=== PATIENT | male | born 1975 | race Caucasian/White ===

== ENCOUNTER 2020-06-30 09:36 | Emergency (ER) | payer BC, SELFPAY ==
--- NOTE | ~2020-06-30 | CT_ITS ---
EXAMINATION: CT abdomen pelvis w con DATE: 06/30/2020 10:50 INDICATION: Upper abdominal pain and distention for one month. Nausea. Diarrhea. TECHNIQUE: Computed tomography (CT) of the abdomen and pelvis was performed with 100 cc Omnipaque 350 intravenous contrast. Automated exposure control and iterative reconstruction technique were employe d. Exam dose: 744.95 mGy-cm total exam DLP. COMPARISON: None. FINDINGS: Bilateral dependent lower lobe and lingular mild atelectasis. Normal heart size. No pericardial or pleural effusion. Small sliding hiatal hernia. Status post cholecystectomy. No bile duct or pancreatic duct dilatation. No hepatic, splenic, pancreatic, adrenal or renal space occupying mass lesion is detected. No urinar y tract calculus or hydroureteronephrosis. Normal caliber of the abdominal aorta. No intraperitoneal or retroperitoneal or pelvic mass lesion o r lymphadenopathy. No ascites. Normal appendix. There is mild distal duodenal and jejunal distention with fluid levels, which may b e due to mild adynamic ileus or enteritis. Otherwise no bowel obstruction or bowel wall thickening o r pneumatosis. The urinary bladder is normal in appearance. Prostate gland is unremarkable. Old healed fractures of left 11th and 12th ribs. No suspicious osteolytic or osteoblastic lesions ar e noted. IMPRESSION: Mild distal duodenal and jejunal distention and fluid levels consistent with mild adynam ic ileus or enteritis Small sliding hiatal hernia Status post cholecystectomy Reviewed, dictated and finalized at [facility] Reviewed, dictated and finalized at [facility] IMPRESSION: Mild distal duodenal and jejunal distention and fluid levels consi stent with mild adynamic ileus or enteritis Small sliding hiatal hernia Status post cholecystectomy
[2020-06-30 09:44] VITALS: BP 137/85; PULSE 81; RESP 18; TEMP 36.6; O2SAT 100
--- NOTE | 2020-06-30 10:09 | ECG_ITS ---
Measurements Intervals [place] Rate: 76 P: 43 IA: 176 QRS: 48 QRSD: 90 T: 52 QT: 370 QTc: 417 Interpretive Statements SINUS RHYTHM CANNOT RULE OUT SEPTAL INFARCT, AGE INDETERMINATE ABNORMAL ECG Electronically Signed On 06-30-2020 10:30:33 CDT by Cody David D.O.
--- NOTE | 2020-06-30 10:13 | ED.ABDPAIN ---
HPI - Abdominal Pain General Chief Complaint: Abdominal Pain Stated Complaint: ABD PAIN Time Seen by Provider: 06/30/20 09:48 History of Present Illness HPI narrative: 44 yo male w/ h/o inguinal and umbilaical hernias s/p repair presents to the ED for abdominal pain. He reports that he has had abdominal pain and bloating for the a few weeks. Today when he awoke he reports that his abdomen was rock hard and the pain was severe. He also had moderate nausea. He reports that he has had diarrhea recently. No BM today. No fever chills. Additionally he has had some burning chest pain. Related Data Allergies Allergy/AdvReac Type Severity Reaction Status Date / Time No Known Allergies Allergy Verified 06/30/20 09:47 Review of Systems Review of Systems: All systems reviewed & are unremarkable except as noted in HPI and below Constitutional: Constitutional: Denies chills and Denies fever(s) ENT: Reports system reviewed and no additional complaints, except as documented Cardiovascular: Cardiovascular: Reports chest pain Respiratory: Respiratory: Denies dyspnea Gastrointestinal: Gastrointestinal: Reports abdominal pain, Reports diarrhea, Reports nausea and Denies vomiting Genitourinary: Genitourinary: Denies hematuria and Denies dysuria Musculoskeletal: Musculoskeletal: Reports back pain Neurologic: Denies confusion and Denies dizziness [facility] Past Medical History Medical History Anxiety and depression History of coronary artery disease History of heart attack Hypertension Inguinal hernia Multiple sclerosis Surgical History Surgical History Hx of cholecystectomy 2014 [place] Hx of colonoscopy Family History Family History Mother Diabetes mellitus Father Lung cancer Social History Social History Smoking status: Former smoker Smoking end date: 02/18/14 Alcohol intake: current Additional occupation/education comments: [employer] Exam Const: General: no acute distress and alert Nutritional Appearance: obese Orientation/consciousness: patient oriented x3 HENMT: Head: normal to inspection Chest: Chest palpation & inspection: normal inspection of the chest and no tenderness Resp: Effort & Inspection: normal respiratory effort Auscultation: clear to auscultation bilaterally Cardio: Rate: regular rate Rhythm: regular rhythm GI: GI Palp: Yes Soft to palpation, Yes Tenderness to palpation present (GI) (diffuse), No Guarding due to palpation present (GI), No Palpable mass present and No Rebound tenderness present Auscultation: normal bowel sounds Skin: General skin exam: normal color Neuro: General: patient oriented x3 and moves all extremities Speech: normal speech Gait exam (Neuro): Normal gait present Extrem: General: normal to inspection and no edema Course Vital Signs Vital signs: Vital Signs Temperature 36.6 C 06/30/20 09:44 Pulse Rate 81 06/30/20 09:44 Respiratory Rate 18 06/30/20 09:44 Blood Pressure 137/85 06/30/20 09:44 Pulse Oximetry 100 06/30/20 09:44 Temperature 36.6 C 06/30/20 09:44 Pulse Rate 81 06/30/20 13:20 Respiratory Rate 18 06/30/20 13:20 Blood Pressure 103/66 06/30/20 13:20 Pulse Oximetry 99 06/30/20 13:20 MDM - Abdominal Pain MDM Narrative Medical decision making narrative: Labs normal. CT shows mild ileus or enteritis. Tolerating PO. Pain improving I will try a short course of antibiotics for possible enteritis. Differential Diagnosis Differential diagnosis: Likely calculus of kidney, constipation, diverticulitis, pancreatitis, small bowel obstruction and other (ventral hernia) Medical Records Attestation: I reviewed the patient's medical records. Lab Data Attestation: I reviewed the patient
[2020-06-30] MEDS: ONDANSETRON INJ 4 MG/2 ML VIAL IV PUSH (10:21)
[2020-06-30] MEDS: MORPHINE SULFATE (*CRX) 4 MG/ML INJ IV PUSH (10:21)
[2020-06-30 10:24] VITALS: BP 120/78; PULSE 82; RESP 18; O2SAT 100
[2020-06-30 10:26] LABS: Basophils Absolute Auto 0.1 K/mm3 (0.0-0.1); Basophils Percent Auto 1.1 % (0.2-1.2); Eosinophils Absolute Auto 0.2 K/mm3 (0-0.3); Eosinophils Percent Auto 2.6 % (0-4.4); Hematocrit 46.4 % (42.0-52.0); Hemoglobin 15.6 g/dL (14.0-18.0); Immature Granulocyte Absolute 0.08 K/mm3 (0.00-0.031); Immature Granulocyte Percent A 1.3 % (0-0.5); Lymphocytes Absolute Auto 1.68 K/mm3 (0.9-3.2); Lymphocytes Percent Auto 27.1 % (18.3-44.2); Mean Corpuscular HGB Conc 33.6 g/dl (32-36); Mean Corpuscular Hemoglobin 32.3 pg (26-34); Mean Corpuscular Volume 96.1 fl (80-100); Mean Platelet Volume 10.1 fl (7.4-10.4); Monocytes Absolute Auto 0.5 K/mm3 (0.1-0.6); Monocytes Percent Auto 8.1 % (2.6-8.5); Neutrophils Absolute Auto 3.7 K/mm3 (1.3-6.7); Neutrophils Percent Auto 59.8 % (45.5-73.1); Platelet Count Result 222 k/mm3 (150-375); Red Blood Count 4.83 M/mm3 (4.6-6.20); Red Cell Distribution Width 12.8 % (11.5-14.5); White Blood Count 6.2 K/mm3 (4.5-10.0)
[2020-06-30 10:28] LABS: Add Urine Microscopic? NO; Appearance Urine Clear (Clear); Bilirubin Urine Negative (Negative); Blood Urine Negative (Negative); Color Urine Straw (Yellow); Glucose Urine UA Negative (Negative); Ketones Urine Negative (Negative); Leukocyte Esterase Ur Negative LEU/UL (Negative); Nitrate Urine Negative (Negative); Protein Urine Negative (Negative); Urobilinogen Urine Negative mg/dL (<2.0)
[2020-06-30 10:35] LABS: INR 0.9; Prothrombin Time 12.2 Seconds (11.1-14.7)
[2020-06-30 10:36] LABS: Alanine Aminotransferase 32 U/L (4-50); Albumin Level 4.5 g/dL (3.5-5.1); Alkaline Phosphatase 61 U/L (38-126); Anion Gap 8 mmol/L (8-16); Aspartate Amino Transferase 27 U/L (17-59); Bilirubin,Total 0.5 mg/dL (0.2-1.3); Blood Urea Nitrogen 17 mg/dL (9-20); Calcium 9.5 mg/dL (8.4-10.2); Carbon Dioxide 29 mmol/L (22-30); Chloride 103 mmol/L (98-107); Estimated CRCL calculation 90 ml/min; Estimated Glomerular Filt Rate > 60; Glucose 92 mg/dL (75-110); Lipase 59 U/L (23-300); Partial Thromboplastin Time 28.7 SECONDS (22.3-36.8); Potassium 3.7 mmol/L (3.4-5.0); Sodium 140 mmol/L (137-145)
[2020-06-30 10:48] LABS: Troponin I < 0.012 ng/mL (0.000-0.034)
[2020-06-30 11:41] VITALS: BP 134/77; PULSE 71; RESP 16; O2SAT 99
[2020-06-30] MEDS: METOCLOPRAMIDE HCL INJ 10 MG/2 ML VIAL IV PUSH (11:58)
[2020-06-30 12:45] VITALS: BP 103/66; PULSE 69; RESP 18; O2SAT 99
[2020-06-30] MEDS: metroNIDAZOLE 250 MG TABLET 500 MG PO (12:48)
[2020-06-30] MEDS: CIPROFLOXACIN 500 MG TAB PO (13:17)
[2020-06-30 13:20] VITALS: BP 103/66; PULSE 81; RESP 18; O2SAT 99
== END 2020-06-30 13:23 | disposition home or self-care (01) ==
PROVIDERS: Emergency Provider Emergency Medicine; PCP Internal Medicine
DX: K52.9 Noninfective gastroenteritis and colitis, unspecified (principal); I25.10 Atherosclerotic heart disease of native coronary artery without angina pectoris; I25.2 Old myocardial infarction; I10 Essential (primary) hypertension; G35 Multiple sclerosis; Z87.891 Personal history of nicotine dependence; R94.31 Abnormal electrocardiogram [ECG] [EKG]
CPT/HCPCS: 36415; 74177; 80053; 81003; 83690; 84484; 85025; 85610; 85730; 93005; 96374; 96375; 99284; A9270; J2270; J2405; J2765; Q9967